=== PATIENT | female | born 1980 | race Caucasian/White ===

== ENCOUNTER 2024-05-08 00:09 | Day surgery (SDC) | payer OTHER, SELFPAY ==
[2024-05-08] VITALS (24 sets, daily range): BP systolic 102–136; BP diastolic 62–97; PULSE 61–98; RESP 14–18; TEMP 36.6–37.1; O2SAT 95–100; BMI 21.0; BMI 21.3
--- NOTE | 2024-05-08 00:11 | ED_ITS ---
HPI - General Adult General Time Seen by Provider: 00:12 Date Seen: 05/08/24 Chief complaint: Abdominal Pain Stated complaint: Abdominal pain Time Seen by Provider: 05/08/24 00:11 Source: patient, RN notes reviewed and old records reviewed Mode of arrival: ambulatory Limitations: no limitations History of Present Illness HPI narrative: 43-year-old female who presents today with abdominal pain. Patient with C- section December 2023 and has been dealing with some postoperative pain and what sounds like a diverticulum of the uterus which has had a clot in it, most recent ultrasound a couple days ago. Had some increased pain after most recent exam earlier in the week, no with a fairly constant pain for the last 9 hours. Pain in the right lower quadrant, worse with moving. No pain with urination, no hematuria, no nausea, vomiting or diarrhea. Took ibuprofen and is feeling a little bit more comfortable. She is . Related Data Home Medications ?Medication ?Instructions ?Recorded ?Confirmed No Known Home Medications 05/08/24 05/08/24 Allergies Allergy/AdvReac Type Severity Reaction Status Date / Time No Known Drug Allergies Allergy Verified 05/08/24 00:19 [facility] Medical History (Updated 05/08/24 @ 02:14 by Abdias Hutson MD) Hypertension ?I10 - Essential (primary) hypertension (ICD-10) Palpitations ?R00.2 - Palpitations (ICD-10) OCD (obsessive compulsive disorder) ?F42.9 - Obsessive-compulsive disorder, unspecified (ICD-10) History of migraine ?Z86.69 - Personal history of other diseases of the nervous system and sense organs (ICD-10) PATRICIA (generalized anxiety disorder) ?F41.1 - Generalized anxiety disorder (ICD-10) Acute pericarditis ?I30.9 - Acute pericarditis, unspecified (ICD-10) Surgical History (Updated 05/08/24 @ 00:46 by Ronald Avila RN) History of wisdom tooth extraction ?K08.409 - Partial loss of teeth, unspecified cause, unspecified class (ICD- 10) History of hysteroscopy ?Z98.890 - Other specified postprocedural states (ICD-10) History of D&C ?Z98.890 - Other specified postprocedural states (ICD-10) History of section ?Z98.891 - History of uterine scar from previous surgery (ICD-10) Social History Smoking Status: Never smoker Second hand tobacco smoke exposure: No How often do you have a drink containing alcohol: never AUDIT-C Alcohol total score: 0 Non-prescribed substance use: denies use Exam Narrative: Exam Narrative: General: Well-developed and well-nourished, no acute distress Head: Atraumatic and normocephalic Eyes: Pupils are equal reactive, extraocular motions intact, conjunctiva clear ENT: External nose and ears are normal, posterior pharynx without erythema or exudate Neck: No midline cervical tenderness, full spontaneous range of motion the neck, trachea midline, no adenopathy Heart: Regular rate and rhythm no murmurs or thrills Lungs: Clear to auscultation bilaterally without wheezes or crackles Abdomen: Soft, diffuse tenderness, worse in the right lower quadrant Musculoskeletal: No tenderness, deformity, or edema Neurologic: Awake, alert, and oriented x3, no gross focal neurologic deficits, cranial nerves intact as tested Psych: Mood and affect are appropriate Skin: No rashes Const: Vital Signs, click to edit/add: Vital Signs - 24 hr 05/08/24 00:16 05/08/24 02:07 Temperature 98.0 F 98.0 F Pulse Rate [Right Pulse Oximeter] 85 79 Respiratory Rate 18 18 Blood Pressure [Ri ght Upper Arm] 133/82 125/78 Pulse Oximetry 99 99 Oxygen Delivery Me thod Room Air Room Air Course Course ED Course: Patient seen examined, prior records reviewed which show history of migraine as well as PVCs, anxiety. Review of chart shows patient had a term delivery the 01/13/2024 which was by low transverse which was repeat section. Patient presents today with right lower quadrant abdominal pain. On exam, vitals are stable, appears uncomfortable with movement and diffuse abdominal tenderness but worse in the right lower quadrant. Concern for possible appendicitis, hemorrhagic ovarian cyst, abdominal wall pain. Patient does say this feels like when she would move around right after . Labs ordered along with CT scan. Reevaluation(s) Time of Reevaluation #1: 00:59 Reevaluation #1: In the labs ordered and independently interpreted by me with mild leukocytosis, normal hemoglobin, normal basic metabolic panel, urinalysis with trace blood. CT abdomen and pelvis independently interpreted by me with inflammatory changes in the right lower quadrant and a dilated appendix consistent with acute appendicitis, there also has a small fluid collection adjacent to the uterus on the right side. 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 Time of Reevaluation #3: 02:00 Reevaluation #3: Care discussed with Dr. Salcido, radiology, who confirms diagnosis of acute appendicitis. Care discussed with Dr. Ortiz, general surgery who recommends admission with plan for surgery in the morning. I spoke with Dr. Jules gonzalez, hospitalist for admission. I also discussed patient's care with her hat sprayer doctor Reece at )GI phone number [phone] who agrees with plan for surgery in feels like the isthmocele that is being followed should not alter or complicate surgical planning. Vital Signs Vital signs: Initial Vital Signs Temperature 98.0 F 05/08/24 00:16 Temperature Source Temporal Artery Scan 05/08/24 00:16 Pulse Rate 85 05/08/24 00:16 Respiratory Rate 18 05/08/24 00:16 Blood Pressure 133/82 05/08/24 00:16 Blood Pressure Mean 99 05/08/24 00:16 Blood Pressure Position Sitting 05/08/24 00:16 Pulse Oximetry 99 05/08/24 00:16 Oxygen Delivery Method Room Air 05/08/24 00:16 Vital Signs Temperature 98.0 F 05/08/24 00:16 Pulse Rate 85 05/08/24 00:16 Respiratory Rate 18 05/08/24 00:16 Blood Pressure 133/82 05/08/24 00:16 Pulse Oximetry 99 05/08/24 00:16 Oxygen Delivery Method Room Air 05/08/24 00:16 Temperature 98.0 F 05/08/24 02:07 Pulse Rate 79 05/08/24 02:07 Respiratory Rate 18 05/08/24 02:07 Blood Pressure 125/78 05/08/24 02:07 Pulse Oximetry 99 05/08/24 02:07 Oxygen Delivery Method Room Air 05/08/24 02:07 Medications Administered Medications: Generic Name Dose Route Start Last Admin Trade Name Freq PRN Reason Stop Dose Admin Piperacillin Sod/Tazobactam 100 mls @ 100 mls/hr 05/08/24 02:13 05/08/24 02:21 Sod 3.375 gm/ Sodium Chloride IVPB 05/08/24 02:14 100 mls/hr ONCE ONE Administration Medical Decision Making Lab Data Labs: Lab Results 05/08/24 05/08/24 Range/Units 00:16 00:30 WBC 11.28 H (4.50-11.00) K/uL RBC 4.59 (4.00-5.20) m/uL Hgb 13.4 (12.0-16.0) gm/dL Hct 41.2 (33.0-51.0) % MCV 90 (80-100) fL MCH 29 (26-34) pg MCHC 33 (32-36) gm/dL RDW Coeff of Jo-Ann 12.9 (11.5-15.5) % Plt Count 236 (140-440) K/uL Neut % (Auto) 72.1 H (42.0-72.0) % Lymph % (Auto) 19.4 L (20-44) % [place] % (Auto) 7.0 (0.0-11.0) % Eos % (Auto) 1.2 (0.0-7.0) % Baso % (Auto) 0.1 (0.0-3.0) % Neut # (Auto) 8.10 H (1.7-7.0) K/uL Lymph # (Auto) 2.20 (0.90-2.90) K/uL [place] # (Auto) 0.80 (0.00-0.90) K/UL Eos # (Auto) 0.10 (0.00-0.50) K/uL Baso # (Auto) 0.00 (0.00-0.30) K/uL Abs Immat Gran (auto) 0.00 (0.00-0.30) K/uL Imm/Tot Granulo (auto) 0.2 % Sodium 139 (135-149) mmol/L Potassium 4.1 (3.6-5.1) mmol/L Chloride 104 (96-114) mmol/L Carbon Dioxide 26 (20-32) mmol/L Anion Gap 9 (7-15) mEq/L BUN 15 (5-24) mg/dL Creatinine 0.9 (0.5-1.5) mg/dL Estimated Creat Clear 75.03 Estimated GFR 81 ml/min Glucose 114 (60-115) mg/dL Calcium 9.7 (8.4-10.6) mg/dL Magnesium 2.3 (1.5-2.6) mg/dL Urine Color Yellow (Yellow) Urine Appearance Clear (Clear) Urine pH 7.0 (5.0-8.5) Ur Specific [place] 1.010 (1.000-1.030) Urine Protein Negative (Negative) Urine Glucose (UA) Negative (Negative) Urine Ketones Negative (Negative) Urine Blood Trace-intact A (Negative) Urine Nitrite Negative (Negative) Urine Bilirubin Negative (Negative) Urine Urobilinogen 0.2 (0.2-1.0) Ur Leukocyte Esterase Negative (Negative) Urine RBC 0-2 (0-2) Urine WBC 0-2 (0-5) Ur Squamous Epith Cells Few (None-Few) Urine Bacteria None (None) Urine HCG, Qual Negative (Negative) Discharge Plan Discharge Clinical Impression: Acute appendicitis, Isthmocele Patient Disposition: Admitted As Observation
[2024-05-08 00:27] LABS: Appearance Urine Clear (Clear); Bilirubin Urine Negative (Negative); Blood Urine Trace-intact (Negative); Color Urine Yellow (Yellow); Glucose Urine Negative (Negative); Ketones Urine Negative (Negative); Leukocyte Esterase Urine Negative (Negative); Nitrite Urine Negative (Negative); Protein Urine Negative (Negative); Urobilinogen Urine 0.2 (0.2-1.0)
--- NOTE | 2024-05-08 00:32 | CRLHL7_ITS ---
For Patients: As a result of the Century Cures Act, medical imaging exams and procedure reports are released immediately into your electronic medical record. You may view this report before your referring provider. If you have questions, please contact your health care provider. INDICATION: RLQ pain, 3 weeks ago. TECHNIQUE: CT abdomen and pelvis acquired with 100 cc Omnipaque 350 IV contrast. COMPARISON: None. FINDINGS: Lower chest: Unremarkable. Liver: Subcentimeter hypodense lesions are too small to characterize, likely cysts. Normal in size and attenuation. No suspicious masses. Gallbladder and bile ducts: Unremarkable. No stones or inflammation. No biliary dilatation. Pancreas: Unremarkable. No mass or inflammation. Spleen: 1.0 cm hypodense splenic lesion that is indeterminate but statistically favored to be benign (2/). Normal in size. Adrenal glands: Unremarkable. No nodules. Kidneys: Unremarkable. No suspicious masses, stones, or hydronephrosis. GI tract: Enlarged appendix measuring 1.1 cm at the tip with associated wall thickening and mucosal hyperenhancement (2/99, 4/). Mild periappendiceal fat stranding. No pneumoperitoneum or focal fluid collection. Vasculature: Abdominal aorta is normal in caliber. Mesenteric arteries are patent. Minimal vascular calcifications Lymph nodes: No lymphadenopathy. Peritoneum/Abdominal Wall: Unremarkable. No sign of mass or infiltration. No free air or significant free fluid. Pelvis: Unremarkable. Bones: Unremarkable for age. IMPRESSION: Enlarged appendix measuring up to 1.1 cm at the tip with associated wall thickening and mucosal hyperenhancement. Mild periappendiceal inflammatory changes. Findings are suggestive of acute uncomplicated appendicitis. Please note that all CT scans at this facility use dose modulation, iterative reconstruction, and/or weight-based dosing when appropriate to reduce radiation dose to as low as reasonably achievable. Dictated by Shady Salcido MD @ 05/08/2024 2:03:22 AM (Electronically Signed)
[2024-05-08 00:34] LABS: RBC Urine 0-2 (0-2); Squamous Epithelial Cell Urine Few (None-Few); WBC Urine 0-2 (0-5)
[2024-05-08 00:42] LABS: Basophils Percent Auto 0.1 % (0.0-3.0); Eosinophils Percent Auto 1.2 % (0.0-7.0); Hematocrit 41.2 % (33.0-51.0); Hemoglobin* 13.4 gm/dL (12.0-16.0); Immature Granulocytes Pct Auto 0.2 %; Lymphocytes Percent Auto 19.4 % (20-44); Mean Corpuscular HGB Conc 33 gm/dL (32-36); Mean Corpuscular Hemoglobin 29 pg (26-34); Mean Corpuscular Volume 90 fL (80-100); Neutrophils Percent Auto 72.1 % (42.0-72.0); Platelet Count* 236 K/uL (140-440); RDW Coefficient of Variation % 12.9 % (11.5-15.5); Red Blood Count 4.59 m/uL (4.00-5.20); White Blood Count* 11.28 K/uL (4.50-11.00)
[2024-05-08 00:43] LABS: Slide Review Reflex No; Ur HCG Qualitative* Negative (Negative)
[2024-05-08 00:55] LABS: Chloride* 104 mmol/L (96-114); Potassium* 4.1 mmol/L (3.6-5.1); Sodium* 139 mmol/L (135-149)
[2024-05-08 00:58] LABS: Anion Gap 9 mEq/L (7-15); Blood Urea Nitrogen* 15 mg/dL (5-24); Carbon Dioxide* 26 mmol/L (20-32); Creatinine* 0.9 mg/dL (0.5-1.5); Est. Creatinine Clearance* 75.03; Estimated Glomerular Filt Rate 81 ml/min; Glucose* 114 mg/dL (60-115); Magnesium* 2.3 mg/dL (1.5-2.6)
[2024-05-08 00:59] LABS: Calcium* 9.7 mg/dL (8.4-10.6)
[2024-05-08] MEDS: PIPERACILLIN/TAZOBACTAM 3.375 GM in 0.9 % SODIUM CHLORIDE Mini-bag 100 ML IVPB ×2 (02:00→08:30)
[2024-05-08] MEDS: LORazepam 2 MG/ML inj 0.5 MG IVP (03:36)
[2024-05-08] MEDS: SODIUM CHLORIDE 0.9 % (FLUSH) 10 ML SYRINGE 5 ML IVF ×2 (03:55→20:07)
[2024-05-08] MEDS: 0.9 % SODIUM CHLORIDE 1000 ml 1,000 ML 100 ML IV (03:55)
[2024-05-08] MEDS: ACETAMINOPHEN 325 MG TABLET 650 MG PO ×2 (04:03→12:48)
--- NOTE | 2024-05-08 04:05 | W.PM.THH&P_ITS ---
Telehealth- H&P: HPI History of Present Illness Date Seen: 05/08/24 Chief complaint: Abdominal pain Narrative: Moris Naranjo is seen as an Interactive Telehealth visit. Moris Naranjo is a 43 year old male who is Seen in her hospital room at [facility]. She has been admitted through the emergency room. She tells me she delivered a baby about 4 months ago via . Currently breast-feeding. The last time she had an ultrasound had some abdominal pain. she has been having follow-up because of a isthmocele Her father is present during the interview and exam. She tells me over the days she has developed increasing abdominal pain moving to the right lower quadrant becoming increasingly severe. This brought her into the emergency room she had a CT scan which was consistent with acute appendicitis. This was discussed with surgery. She is very worried about potential complications of the isthmopcele. During the time I was interviewing examining her she started develop what appeared to be rigors she became very shaky was worried that she did not feel well she was breathing hard blood pressure was somewhat elevated she became very shaky. It appeared to be rigors but panic attack also would look very similar. Without any significant interaction or intervention this improved in about 15 to 20 minutes and she was back to her baseline. Review of Systems Narrative: A complete review of systems was performed positive pertinent and negatives in the history of present illness. [facility] Medical History (Updated 05/08/24 @ 04:42 by Mars Egan DO) Hypertension ?I10 - Essential (primary) hypertension (ICD-10) Palpitations ?R00.2 - Palpitations (ICD-10) OCD (obsessive compulsive disorder) ?F42.9 - Obsessive-compulsive disorder, unspecified (ICD-10) History of migraine ?Z86.69 - Personal history of other diseases of the nervous system and sense organs (ICD-10) PATRICIA (generalized anxiety disorder) ?F41.1 - Generalized anxiety disorder (ICD-10) Acute pericarditis ?I30.9 - Acute pericarditis, unspecified (ICD-10) Surgical History (Updated 05/08/24 @ 00:46 by Ronald Avila RN) History of wisdom tooth extraction ?K08.409 - Partial loss of teeth, unspecified cause, unspecified class (ICD- 10) History of hysteroscopy ?Z98.890 - Other specified postprocedural states (ICD-10) History of D&C ?Z98.890 - Other specified postprocedural states (ICD-10) History of section ?Z98.891 - History of uterine scar from previous surgery (ICD-10) Social History Smoking Status: Never smoker Second hand tobacco smoke exposure: No How often do you have a drink containing alcohol: never AUDIT-C Alcohol total score: 0 Non-prescribed substance use: denies use Meds Home Medications and Allergies Home Medications ?Medication ?Instructions ?Recorded ?Confirmed ?Type No Known Home Medications 05/08/24 05/08/24 History Allergies Allergy/AdvReac Type Severity Reaction Status Date / Time No Known Drug Allergies Allergy Verified 05/08/24 00:19 Exam Narrative Exam Narrative: Physical Exam GENERAL: ?vital signs reviewed, well developed and nourished, in no distress HEENT: pupils are equal round and reactive to light, extraocular movements are grossly within normal limits and oral mucosa is moist. NECK: Supple without lymphadenopathy or thyromegaly according to nursing staff examination observation HEART: Regular rate and rhythm without any rubs, murmurs, or gallops. LUNGS: Clear to auscultation bilaterally with good air movement throughout ABDOMEN: Observation from nurse assisted exam, Very tender in the right lower quadrant positive rebound, bowel sounds are hypoactive her wound from is healing nicely EXTREMITIES: Strength and sensation is observed to be grossly within normal limits in the upper and lower extremities.? No focal strength deficit is observed. SKIN:? Observed warm and dry with color normal patient does appear to have 1 spell of possible anxiety versus rigors Const Vital Signs, click to edit/add: Vital Signs - 24 hr 05/08/24 00:16 05/08/24 02:07 05/08/24 02:38 Temperature 98.0 F 98.0 F 98.0 F Pulse Rate [Right Pulse Oximeter] 85 79 79 Respiratory Rate 18 18 18 Blood Pressure [Right Upper Arm] 133/82 125/78 125/78 Pulse Oximetry 99 99 Oxygen Delivery Method Room Air Room Air Hospitalist - H&P: Result Labs Labs: Short CBC 05/08/24 Range/Units 00:30 WBC 11.28 H (4.50-11.00) K/uL Hgb 13.4 (12.0-16.0) gm/dL Hct 41.2 (33.0-51.0) % Plt Count 236 (140-440) K/uL BMP 05/08/24 00:30 Sodium 139 Potassium 4.1 Chloride 104 Carbon Dioxide 26 BUN 15 Creatinine 0.9 Glucose 114 Calcium 9.7 Urine 05/08/24 Range/Units 00:16 Urine Color Yellow (Yellow) Urine Appearance Clear (Clear) Urine pH 7.0 (5.0-8.5) Ur Specific [place] 1.010 (1.000-1.030) Urine Protein Negative (Negative) Urine Glucose (UA) Negative (Negative) Assessment and Plan Assessment and plan (1) Acute appendicitis: Status: Acute (2) Isthmocele: Status: Acute (3) Breast feeding status of mother: Status: Acute Plan acute appendicitis will treat the usual fashion IV antibiotics will use Zosyn. Pain control as needed will try to minimize this because of potential breast- feeding. Will place a consult with general surgery anticipate her to go to the operating room in the next couple of hours. Will continue. N.p.o. will type and screen her. Patient did have an episode while I was in the room appeared to be rigors versus a panic attack that resolved about 20 minutes without any specific intervention. Vitals remained elevated during that time. No specific intervention continue to observe from. Overall patient is not having si gnificant abdominal pain unless she moves or is laying flat. Isthmocele at this point I am not sure this is much of an issue will continue to follow make sure surgery is aware of this. Breast-feeding?try to avoid medications which will cause difficulty with breast-feeding. Will try to minimize pain medications. For now Zosyn . But ultimately she may need pendent medications for pain control. DVT prophylaxis per surgery CODE STATUS full code Telehealth: Statement Statement Telehealth Visit: Today's History and Physical is provided via interactive telehealth by Mars Egan DO.? Patient is located at [facility].? Provider is located at [facility].? Nursing staff assisted with the patient's exam. The visit being done today meets criteria for a telehealth visit and the patient or patient?s parent/guardian is aware the visit is a telehealth visit. Camera Start Time: 03:08 Camera End Time: 04:03
--- NOTE | 2024-05-08 04:35 | W.PM.THH&P_ITS ---
Telehealth- H&P: HPI History of Present Illness Date Seen: 05/08/24 Chief complaint: Abdominal pain Narrative: Moris Naranjo is seen as an Interactive Telehealth visit. Moris Naranjo is a 43 year old male who is Seen in her room at [facility]. She is seen with the assistance of nursing staff her father is present during the interview and exam she is admitted through the emergency room. She is approximately 4 months. She is following with an is [facility] Medical History (Updated 05/08/24 @ 04:42 by Mars Egan DO) Hypertension ?I10 - Essential (primary) hypertension (ICD-10) Palpitations ?R00.2 - Palpitations (ICD-10) OCD (obsessive compulsive disorder) ?F42.9 - Obsessive-compulsive disorder, unspecified (ICD-10) History of migraine ?Z86.69 - Personal history of other diseases of the nervous system and sense organs (ICD-10) PATRICIA (generalized anxiety disorder) ?F41.1 - Generalized anxiety disorder (ICD-10) Acute pericarditis ?I30.9 - Acute pericarditis, unspecified (ICD-10) Surgical History (Updated 05/08/24 @ 00:46 by Ronald Avila RN) History of wisdom tooth extraction ?K08.409 - Partial loss of teeth, unspecified cause, unspecified class (ICD- 10) History of hysteroscopy ?Z98.890 - Other specified postprocedural states (ICD-10) History of D&C ?Z98.890 - Other specified postprocedural states (ICD-10) History of section ?Z98.891 - History of uterine scar from previous surgery (ICD-10) Social History Smoking Status: Never smoker Second hand tobacco smoke exposure: No How often do you have a drink containing alcohol: never AUDIT-C Alcohol total score: 0 Non-prescribed substance use: denies use Meds Home Medications and Allergies Home Medications ?Medication ?Instructions ?Recorded ?Confirmed ?Type No Known Home Medications 05/08/24 05/08/24 History Allergies Allergy/AdvReac Type Severity Reaction Status Date / Time No Known Drug Allergies Allergy Verified 05/08/24 00:19 Exam Narrative Exam Narrative: Physical Exam GENERAL: ?vital signs reviewed, well developed and nourished, in no distress HEENT: pupils are equal round and reactive to light, extraocular movements are grossly within normal limits and oral mucosa is moist. NECK: Supple without lymphadenopathy or thyromegaly according to nursing staff examination observation HEART: Regular rate and rhythm without any rubs, murmurs, or gallops. LUNGS: Clear to auscultation bilaterally with good air movement throughout ABDOMEN: Observation from nurse assisted exam, abdomen appears soft, nontender, and nondistended with Positive bowel sounds noted. EXTREMITIES: Strength and sensation is observed to be grossly within normal limits in the upper and lower extremities.? No focal strength deficit is observed. SKIN:? Observed warm and dry with color normal Const Vital Signs, click to edit/add: Vital Signs - 24 hr 05/08/24 00:16 05/08/24 02:07 05/08/24 02:38 Temperature 98.0 F 98.0 F 98.0 F Pulse Rate [Right Pulse Oximeter] 85 79 79 Respiratory Rate 18 18 18 Blood Pressure [Right Upper Arm] 133/82 125/78 125/78 Pulse Oximetry 99 99 Oxygen Delivery Method Room Air Room Air Hospitalist - H&P: Result Labs Labs: Short CBC 05/08/24 Range/Units 00:30 WBC 11.28 H (4.50-11.00) K/uL Hgb 13.4 (12.0-16.0) gm/dL Hct 41.2 (33.0-51.0) % Plt Count 236 (140-440) K/uL BMP 05/08/24 00:30 Sodium 139 Potassium 4.1 Chloride 104 Carbon Dioxide 26 BUN 15 Creatinine 0.9 Glucose 114 Calcium 9.7 Urine 05/08/24 Range/Units 00:16 Urine Color Yellow (Yellow) Urine Appearance Clear (Clear) Urine pH 7.0 (5.0-8.5) Ur Specific [place] 1.010 (1.000-1.030) Urine Protein Negative (Negative) Urine Glucose (UA) Negative (Negative) Telehealth: Statement Statement Telehealth Visit: Today's History and Physical is provided via interactive telehealth by Mars Egan DO.? Patient is located at [facility].? Provider is located at [facility].? Nursing staff assisted with the patient's exam. The visit being done today meets criteria for a telehealth visit and the patient or patient?s parent/guardian is aware the visit is a telehealth visit.
[2024-05-08 05:50] LABS: Hemoglobin* 12.7 gm/dL (12.0-16.0)
--- NOTE | 2024-05-08 07:46 | PC.NURSE ---
Pt is alert and oriented x3. Afebrile. Pt reports 3-6/10 pain in abdomen, pain managed with PRN Tylenol. Pt is up ad milla, tolerating a NPO diet. Pt's family at bed side.
--- NOTE | 2024-05-08 08:13 | P.GSCN_ITS ---
History of Present Illness Consult details Date Seen: 05/08/24 Consult date: 05/08/24 Narrative: Patient presented to the emergency department with right lower quadrant abdominal pain. She has a history of a in December 2023. 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 Her most recent ultrasound was a couple days ago, which showed contraction of the diverticulum and the presence of clot. Yesterday she had an increase in pain on the right side. This pain has been fairly constant. She denies any fevers or chills. No vomiting or diarrhea. She did take ibuprofen, which has been helping with the pain. She is exclusively . Review of Systems Status of ROS: Reports: 10 or more systems reviewed and unremarkable except as noted in History and below [facility] Medical History (Updated 05/08/24 @ 04:42 by Mars Egan DO) Hypertension ?I10 - Essential (primary) hypertension (ICD-10) Palpitations ?R00.2 - Palpitations (ICD-10) OCD (obsessive compulsive disorder) ?F42.9 - Obsessive-compulsive disorder, unspecified (ICD-10) History of migraine ?Z86.69 - Personal history of other diseases of the nervous system and sense organs (ICD-10) PATRICIA (generalized anxiety disorder) ?F41.1 - Generalized anxiety disorder (ICD-10) Acute pericarditis ?I30.9 - Acute pericarditis, unspecified (ICD-10) Surgical History (Updated 05/08/24 @ 00:46 by Ronald Avila RN) History of wisdom tooth extraction ?K08.409 - Partial loss of teeth, unspecified cause, unspecified class (ICD- 10) History of hysteroscopy ?Z98.890 - Other specified postprocedural states (ICD-10) History of D&C ?Z98.890 - Other specified postprocedural states (ICD-10) History of section ?Z98.891 - History of uterine scar from previous surgery (ICD-10) Social History What is your current living situation?: I presently have a place to live Problems where you live: no known problems Problems where you live details: no known problems In the past 12 months, utilities in danger of being shut off: no In past 12 months, lack of transportation kept you from medical appts, meetings, work, or getting things needed for daily living: no In the past 12 mos, have been you worried that your food would run out before you had money to buy more?: never true In the past 12 mos, the food you bought just didn't last and you didn't have money to buy more?: never true Smoking Status: Never smoker Do you use any of these nicotine containing products: None Second hand tobacco smoke exposure: No How often do you have a drink containing alcohol: never AUDIT-C Alcohol total score: 0 Non-prescribed substance use: denies use Caffeine: Yes (Coffee) How often does anyone, including family, friends and others, physically hurt you : never How often does anyone, including family, friends and others, insult or talk down to you: never How often does anyone, including family, friends and others, threaten you with harm: never How often does anyone, including family, friends and others, scream or curse at you: never service: No Meds Home Medications and Allergies Home Medications ?Medication ?Instructions ?Recorded ?Confirmed ?Type No Known Home Medications 05/08/24 05/08/24 History Allergies Allergy/AdvReac Type Severity Reaction Status Date / Time No Known Drug Allergies Allergy Verified 05/08/24 00:19 Exam Narrative: Exam Narrative: General: Alert and oriented, no acute distress Respiratory: Equal breath rise bilaterally, maintained on room air CV: Well perfused Abdomen: Soft, tender to palpation right lower quadrant with some guarding, no rebound. Lower Pfannenstiel incision well healed. Const: Vital Signs, click to edit/add: Vital Signs - 24 hr 05/08/24 00:16 05/08/24 02:07 05/08/24 02:34 Temperature 98.0 F 98.0 F 98.1 F Pulse Rate [Pulse Oximeter] 71 Pulse Rate [Right Pulse Oximeter] 85 79 Respiratory Rate 18 18 16 Blood Pressure [Ri ght Arm] 136/97 H Blood Pressure [Ri ght Upper Arm] 133/82 125/78 Pulse Oximetry 99 99 100 Oxygen Delivery Me thod Room Air Room Air Room Air 05/08/24 02:35 05/08/24 02:38 05/08/24 07:15 Temperature 98.0 F 98.3 F Pulse Rate [Pulse Oximeter] 98 Pulse Rate [Right Pulse Oximeter] 79 Respiratory Rate 18 16 Blood Pressure [Ri ght Arm] 132/82 Blood Pressure [Ri ght Upper Arm] 125/78 Pulse Oximetry 99 Oxygen Delivery Me thod Room Air Room Air Results Labs Labs: Abnormal lab results 05/08/24 05/08/24 Range/Units 00:16 00:30 WBC 11.28 H (4.50-11.00) K/uL Neut % (Auto) 72.1 H (42.0-72.0) % Lymph % (Auto) 19.4 L (20-44) % Neut # (Auto) 8.10 H (1.7-7.0) K/uL Urine Blood Trace-intact A (Negative) Diabetes panel 05/08/24 Range/Units 00:30 Sodium 139 (135-149) mmol/L Potassium 4.1 (3.6-5.1) mmol/L Chloride 104 (96-114) mmol/L Carbon Dioxide 26 (20-32) mmol/L BUN 15 (5-24) mg/dL Creatinine 0.9 (0.5-1.5) mg/dL Glucose 114 (60-115) mg/dL Calcium 9.7 (8.4-10.6) mg/dL Calcium panel 05/08/24 Range/Units 00:30 Calcium 9.7 (8.4-10.6) mg/dL Pituitary panel 05/08/24 Range/Units 00:30 Sodium 139 (135-149) mmol/L Potassium 4.1 (3.6-5.1) mmol/L Chloride 104 (96-114) mmol/L Carbon Dioxide 26 (20-32) mmol/L BUN 15 (5-24) mg/dL Creatinine 0.9 (0.5-1.5) mg/dL Glucose 114 (60-115) mg/dL Calcium 9.7 (8.4-10.6) mg/dL Adrenal panel 05/08/24 Range/Units 00:30 Sodium 139 (135-149) mmol/L Potassium 4.1 (3.6-5.1) mmol/L Chloride 104 (96-114) mmol/L Carbon Dioxide 26 (20-32) mmol/L BUN 15 (5-24) mg/dL Creatinine 0.9 (0.5-1.5) mg/dL Glucose 114 (60-115) mg/dL Calcium 9.7 (8.4-10.6) mg/dL All other labs normal. Imaging Abdomen CT scan report/results: report reviewed and image reviewed Progress Note:A&P Assessment and plan (1) Acute appendicitis: Status: Acute Assessment and Plan: Patient presents with clinical workup and history consistent with acute appendicitis. This was confirmed on CT scan with no evidence of perforation or associated abscess. I discussed the treatment options with the patient including non-surgical and surgical options. I recommended laparoscopic appendectomy. The risks of surgery were reviewed with the patient including the risks of bleeding, post-operative wound or intra-abdominal infection, injury to abdominal structures and possible conversion to an open operation. Patient does have the presence of a uterine diverticulum filled with clot, but this does appear away from the appendix. We also discussed anesthetic complications including SC, stroke, respiratory failure and blood clots. The patient voiced an understanding of our conversation, had the opportunity to ask questions, agreed to accept the risks of surgery and asked that we proceed with surgery. - OR for laparoscopic appendectomy
[2024-05-08] MEDS: BUPIVACAINE 0.25% 30 ML INJECTION (10:25)
[2024-05-08] MEDS: LACTATED RINGERS 1000 ML 1,000 ML 100 ML IV (10:27)
--- NOTE | 2024-05-08 10:49 | W.ANESCHARGE ---
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
--- NOTE | 2024-05-08 10:55 | P.ANES_ITS ---
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
[2024-05-08] MEDS: fentaNYL 100 MCG/2 ML inj 50 MCG IVP ×2 (11:05→11:15)
[2024-05-08] MEDS: HYDROmorphone 0.5 mg/0.5 ml inj IVP (11:47)
[2024-05-08] MEDS: ONDANSETRON 2 MG/ML inj 4 MG IVP (11:54)
--- NOTE | 2024-05-08 13:09 | PM.GSPRC ---
Operative Note Date of procedure: 05/08/24 Pre-op diagnosis: Acute appendicitis Post-op diagnosis: Same Type of Procedure: Laparoscopic appendectomy Indications: Patient is a 43-year-old female who presented to the emergency department with clinical signs and symptoms consistent with acute appendicitis. CT scan confirmed the diagnosis. Risks and benefits of operative intervention were discussed at length with the patient. Risks included but was not limited to: Bleeding, infection, risk of damage to surrounding structures, possible need for additional procedures, possible need to convert to an open operation and postoperative complications such as pneumonia, pulmonary emboli or PA. All questions and concerns were addressed with the patient agreeing to proceed. Procedure Description: After discussing the risks and benefits of the procedure, the patient signed informed consent.? The operative site was marked and the patient was brought to the operating room and placed on the operating table in supine position.? Care was taken to pad the patient's pressure points.?? The patient was then intubated by anesthesia.?? The operative site was then prepped and draped in the usual sterile fashion.? A time-out was then performed. Entrance to the abdomen was obtained via a 5 mm optical trocar in the left upper quadrant. The abdomen was insufflated and briefly surveyed for any signs of injury. There were none. A 12 mm port was placed at the umbilicus as well as a 5 mm port in the left lower quadrant under direct vision. The patient was then placed in Trendelenburg position with the right side up. The small bowel was gently moved out of the way and the appendix was in view. The appendix was away from the uterus, which was appropriate size for 3 months . A small amount of dissection was necessary to free the appendix from the surrounding pelvic attachments. This was grasped and pulled into view. A mesenteric window was created between the base of the appendix and the mesoappendix. A 45 mm Endo-JANI purple load stapler was then used to transect the appendix at its base. A 45 mm vascular load stapler was then used to take the mesoappendix. The staple lines were inspected for bleeding. A few areas of pinpoint bleeding were controlled with 5 mm clips. The appendix was then removed from the abdomen using an Endo-Catch bag. The specimen was sent to pathology. The 12 mm port site fascia was closed with 0 Vicryl. The skin was then closed with absorbable subcuticular suture. Sterile dressings were then applied. Instrument sponge and needle counts were correct at the end of the case. The patient was then woken and transported to the PACU in stable condition. Findings: Acute appendicitis, non perforated. Anesthesia: GETA Surgeon: Soni Ortiz MD Estimated blood loss (mL): 5 Specimen: Appendix Condition: stable Disposition: PACU
[2024-05-08] MEDS: KETOROLAC 15 MG/ML inj IVP ×2 (14:08→20:06)
[2024-05-08] MEDS: SODIUM CHLORIDE 0.9 % (FLUSH) 10 ML SYRINGE IVF (14:09)
[2024-05-08] MEDS: SENNOSIDES 1 TAB TABLET PO (15:51)
[2024-05-08] MEDS: OXYCODONE 5 MG TABLET PO ×2 (16:51→20:06)
[2024-05-08 17:57] LABS: Hemoglobin* 12.1 gm/dL (12.0-16.0)
--- NOTE | 2024-05-08 18:56 | PC.NURSE ---
Pt alert and oriented. Pt had complaint of a headache pre surgery. Pt up independently in room. Pt taken to surgery at 930 Pt returned at 1136. Pt had complaints of pain ranging from 5-9; see EMAR for intervention. Pt?s diet advanced to regular and tolerated well. Pt up to bathroom with SBA. Family at bedside during shift.?Pt fully recovered on M/S after surgery; Pt may discharge home tonight.
--- NOTE | 2024-05-08 20:10 | PC.NURSE ---
Patient reports nausea with [place], requests Oxycodone. Has 4 tablets at home to use overnight. Dr. Ortiz updated, will change Rx to Oxycodone. Called [facility] in record and left voicemail to cancel [place] script and look for Oxycodone being sent in.
--- NOTE | 2024-05-08 20:12 | PC.NURSE ---
Change of Rx from [place] to Oxy was written on discharge instructions.
== END 2024-05-08 21:09 | disposition home or self-care (01) ==
LOC: ED 02:14 → MEDSURG 07:05 → SS 08:29 → MEDSURG 08:41
PROVIDERS: Internal Medicine; Emergency Provider Family Medicine; Visit Provider Surgery
PROC: 0DTJ4ZZ Resection of Appendix, Percutaneous Endoscopic Approach (ICD-10-PCS; CPT 44970; principal; 2024-05-08 08:30)
DX: K35.80 Unspecified acute appendicitis (principal); N85.A Isthmocele; R10.31 Right lower quadrant pain; I10 Essential (primary) hypertension
CPT/HCPCS: 44970; 00840; 36415; 74177; 80048; 81001; 81025; 83735; 85018; 85025; 86850; 86900; 86901; 88304; 99140; 99285; A9270; J0665; J1100; J1170; J1630; J1885; J2060; J2405; J2543; J2704; J2710; J3010; J7030; J7120; Q9967